=== PATIENT | female | born 1995 | race Caucasian/White ===

== ENCOUNTER 2021-03-04 10:10 | Outpatient (CLI) | payer OTHER ==
[2021-03-04 22:41] LABS: SARS-CoV-2 PCR by NAA Not Detected (NotDetected)
== END 2021-03-04 10:11 | disposition home or self-care (01) ==
LOC: CSHLAB 10:10
PROVIDERS: ATTEND Obstetrics & Gynecology
DX: Z20.822 Contact with and (suspected) exposure to COVID-19 (principal)
CPT/HCPCS: U0003; U0005

== ENCOUNTER 2021-03-08 05:20 | Inpatient (IN) | payer OTHER ==
[~2021-03-08 05:20] MED LIST: Ondansetron PF 4 MG/2 ML Vial IVP PRN; hydrALAZINE 20 MG/ML VIAL SLOW IVP PRN
[2021-03-08] MEDS ORDERED: Famotidine/PF 20 mg/2ml Vial SLOW IVP PRN (05:24)
[2021-03-08] MEDS ORDERED: ceFAZolin 2 GM/Dextrose 50 ML 2 GM in Premix Bag 1 BAG IVPB SCH (05:24)
[2021-03-08] MEDS ORDERED: Bicitra 30 ML UDCUP PO PRN (05:24)
[2021-03-08] MEDS ORDERED: Promethazine HCl 25 MG/ML VIAL IM PRN ×2 (05:52→09:07)
[2021-03-08] MEDS ORDERED: Acetaminophen 500 MG TAB PO SCH (06:00)
[2021-03-08] MEDS: Lactated Ringer's 1,000 ML IV SCH ×2 (06:30→11:56)
[2021-03-08 06:55] LABS: SARS-CoV-2 NAA Rapid Test DETECTED (NotDetected)
[2021-03-08 07:13] LABS: Hemoglobin 11.7 g/dL (12.0-15.5); Mean Corpuscular HGB CONC 34.1 g/dL (32.0-36.0); Mean Corpuscular Hemoglobin 31.4 pg (27.0-33.0); Mean Platelet Volume 11.9 fl (7.4-10.4); Platelet Count 103 10x3/uL (150-450); Red Blood Cell (RBC) Count 3.73 10x6/uL (3.90-5.03); White Blood Cell (WBC) Count 6.8 10x3/uL (3.5-10.5)
[2021-03-08] MEDS ORDERED: Fentanyl 100 MCG/2 ML VIAL ONE (07:40)
[2021-03-08] MEDS ORDERED: Morphine PF 10 MG/10 ML VIAL ONE (07:40)
[2021-03-08] MEDS ORDERED: ePHEDrine Sulfate 50 MG/10 ML VIAL ONE (07:40)
[2021-03-08 07:42] LABS: Syphilis Antibody Nonreactive (Nonreactive); Syphilis Antibody Index 0.02 S/CO (<1.00 Non-Reactive)
[2021-03-08 07:43] LABS: HBSAg Index 0.19 S/CO (0-0.99); Hep B Surf Ag Non-Reactive S/CO (NonReactive)
[2021-03-08 07:45] VITALS: BMI 40.7
[2021-03-08] MEDS ORDERED: PHENYLEPHRINE-NS 100 MCG/ML 10 ML SYRINGE ONE (07:48)
[2021-03-08] MEDS ORDERED: Oxytocin 10 UNITS/ML VIAL ONE ×2 (07:48→08:24)
[2021-03-08] MEDS ORDERED: Ondansetron PF 4 MG/2 ML Vial ONE (08:25)
[2021-03-08] MEDS ORDERED: Ketorolac Tromethamine 30 MG/ML VIAL ONE (08:25)
[2021-03-08] MEDS ORDERED: Phytonadione Neonatal 1 MG/0.5 ML AMP ONE (08:37)
[2021-03-08] MEDS ORDERED: Erythromycin Base 0.5% Oint 1 GM TUBE ONE (08:37)
[2021-03-08] MEDS ORDERED: Hydrocerin (Eucerin) Cream 120 gm Jar TOP PRN (09:07)
[2021-03-08] MEDS ORDERED: HYDROmorphone 2 MG/ML VIAL SLOW IVP PRN (09:07)
[2021-03-08] MEDS ORDERED: Promethazine HCl 25 MG SUPP PR PRN (09:07)
[2021-03-08] MEDS ORDERED: diphenhydrAMINE 50 MG/ML VIAL IVP PRN (09:07)
[2021-03-08] MEDS ORDERED: Naloxone HCl 0.4 mg/ml Vial IVP PRN ×2 (09:07)
[2021-03-08] MEDS ORDERED: Meperidine HCl/PF 25 MG/ML VIAL SLOW IVP PRN (09:07)
[2021-03-08] MEDS ORDERED: Fentanyl 100 MCG/2 ML VIAL SLOW IVP PRN (09:07)
[2021-03-08] MEDS ORDERED: Ondansetron HCl/PF 4 MG/2 ML Vial IVP PRN (09:07)
[2021-03-08] MEDS ORDERED: Naloxone HCl 0.4 mg/ml Vial IV PRN (09:07)
[2021-03-08] MEDS ORDERED: Ondansetron PF 4 MG/2 ML Vial IVP PRN ×2 (09:07→13:43)
[2021-03-08] MEDS ORDERED: Communication Order-Pharmacy FS SCH (09:15)
[2021-03-08] MEDS ORDERED: guaiFENesin ER 600 MG TAB PO PRN (13:43)
[2021-03-08] MEDS ORDERED: Lanolin Ointment 7 GM TUBE TOP PRN (13:43)
[2021-03-08] MEDS ORDERED: diphenhydrAMINE 25 MG CAP PO PRN (13:43)
[2021-03-08] MEDS ORDERED: Misoprostol 200 MCG TAB PR PRN (13:43)
[2021-03-08] MEDS ORDERED: Simethicone Chewable 80 MG TAB PO PRN (13:43)
[2021-03-08] MEDS ORDERED: hydrALAZINE 20 MG/ML VIAL SLOW IVP PRN (13:43)
[2021-03-08] MEDS ORDERED: NS w/ Oxytocin 30 units 500 ML IV SCH (13:43)
[2021-03-08] MEDS ORDERED: Boostrix 0.5 ML (Tdap) VIAL IM ONE (13:43)
[2021-03-08] MEDS ORDERED: Methylergonovine 0.2 MG/ML VIAL IM PRN (13:43)
[2021-03-08] MEDS: Ketorolac Tromethamine 30 MG/ML VIAL IVP PRN (18:27)
[2021-03-08] MEDS ORDERED: Enoxaparin Sodium 40 MG/0.4 ML SYRINGE SC SCH (21:00)
[2021-03-08] MEDS ORDERED: HYDROcodone/Acetaminophen 5/325 mg Tablet PO PRN (21:30)
[2021-03-08] MEDS: Ferrous Sulfate 325 MG TAB PO SCH (21:54)
[2021-03-09] MEDS ORDERED: Acetaminophen 500 MG TAB PO PRN (00:31)
[2021-03-09] MEDS: Ketorolac Tromethamine 30 MG/ML VIAL IVP PRN (04:06)
[2021-03-09 07:16] LABS: Hemoglobin 9.9 g/dL (12.0-15.5); Mean Corpuscular Hemoglobin 31.3 pg (27.0-33.0); Mean Corpuscular Volume 92.1 fl (81.6-98.3); Mean Platelet Volume 11.9 fl (7.4-10.4); Platelet Count 88 10x3/uL (150-450); RBC Distribution Width 13.1 % (11.5-14.5); Red Blood Cell (RBC) Count 3.16 10x6/uL (3.90-5.03); White Blood Cell (WBC) Count 4.6 10x3/uL (3.5-10.5)
[2021-03-09] MEDS: Prenatal Vitamin 1 TAB PO SCH (08:38)
[2021-03-09] MEDS: Ferrous Sulfate 325 MG TAB PO SCH ×2 (08:38→21:41)
[2021-03-09] MEDS: Enoxaparin Sodium 40 MG/0.4 ML SYRINGE SC SCH (09:57)
[2021-03-09] MEDS: Ibuprofen 800 MG TAB PO SCH ×2 (12:24→21:41)
[2021-03-10] MEDS: Ibuprofen 800 MG TAB PO SCH (05:05)
[2021-03-10 07:21] LABS: #Monocytes 0.3 10x3/uL (0.0-1.1); #Neutrophils 3.3 10x3/uL (1.5-8.4); %Basophils 0.2 % (0.0-2.0); %Eosinophils 0.2 % (0.0-6.0); %Lymphocytes 28.8 % (18.0-47.0); %Monocytes 5.5 % (0.0-10.0); %Neutrophils 64.7 % (40.0-75.0); Hemoglobin 10.5 g/dL (12.0-15.5); Mean Corpuscular HGB CONC 33.9 g/dL (32.0-36.0); Mean Corpuscular Hemoglobin 31.9 pg (27.0-33.0); Mean Corpuscular Volume 94.2 fl (81.6-98.3); Mean Platelet Volume 11.5 fl (7.4-10.4); Platelet Count 107 10x3/uL (150-450); RBC Distribution Width 13.3 % (11.5-14.5); Red Blood Cell (RBC) Count 3.29 10x6/uL (3.90-5.03); White Blood Cell (WBC) Count 5.1 10x3/uL (3.5-10.5)
[2021-03-10] MEDS: Enoxaparin Sodium 40 MG/0.4 ML SYRINGE SC SCH (08:01)
[2021-03-10] MEDS: Ferrous Sulfate 325 MG TAB PO SCH (08:24)
[2021-03-10] MEDS: Prenatal Vitamin 1 TAB PO SCH (08:24)
[2021-03-10 09:19] VITALS: BP 132/54; TEMP 97.9
== END 2021-03-10 11:25 | disposition home or self-care (01) | DRG 786 ==
LOC: CSHLD 05:20 → CSHPP 15:23
PROVIDERS: ADMIT Obstetrics & Gynecology; ATTEND Obstetrics & Gynecology
PROC: 10D00Z1 Extraction of Products of Conception, Low, Open Approach (ICD-10-PCS; principal; 2021-03-08)
PROC: 8E0ZXY6 Isolation (ICD-10-PCS; 2021-03-08)
DX: O34.211 Maternal care for low transverse scar from previous cesarean delivery (principal); U07.1 COVID-19; O98.52 Other viral diseases complicating childbirth; Z37.0 Single live birth; Z3A.39 39 weeks gestation of pregnancy; O76 Abnormality in fetal heart rate and rhythm complicating labor and delivery
CPT/HCPCS: 0240U; 36415; 51702; 85025; 85027; 86780; 86850; 86900; 86901; 87340; J1650; J1885; J2274; J2405; J2590; J3010; J7120; S0028